=== PATIENT | male | born 1990 | race Caucasian/White ===

== ENCOUNTER 2021-04-07 04:07 | Emergency (ER) | payer SELFPAY ==
[~2021-04-07] VITALS: Ht 175.3 cm; Wt 88.0 kg
[2021-04-07 16:30] VITALS: BP 0/0
== END 2021-04-07 04:23 ==
LOC: MED 04:07
DX: I46.9 Cardiac arrest, cause unspecified (principal)
CPT/HCPCS: 31500; 99285